=== PATIENT | male | born 1990 | race American Indian/Alaskan Native ===

== ENCOUNTER 2018-03-24 15:38 | Emergency (ER) | payer MEDICAID ==
[~2018-03-24] VITALS: Ht 175.3 cm; Wt 91.9 kg
[2018-03-24 15:42] VITALS: BP 155/92
== END 2018-03-24 16:29 | disposition home or self-care (01) ==
LOC: ER 15:38
DX: K52.9 Noninfective gastroenteritis and colitis, unspecified (principal)
CPT/HCPCS: 99281

== ENCOUNTER 2019-10-26 15:58 | Emergency (ER) | payer MEDICAID, OTHER ==
[~2019-10-26] VITALS: Ht 175.3 cm; Wt 64.6 kg
[2019-10-26 16:00] VITALS: BP 125/74
== END 2019-10-26 19:02 | disposition left against medical advice (07) ==
LOC: ER 15:58 → MERGE 15:58 → ER 19:02
DX: L02.415 Cutaneous abscess of right lower limb (principal); Z53.21 Procedure and treatment not carried out due to patient leaving prior to being seen by health care provider

== ENCOUNTER 2021-08-18 05:57 | Emergency (ER) | payer MEDICAID ==
[~2021-08-18] VITALS: Ht 175.3 cm; Wt 70.0 kg
[2021-08-18 06:14] VITALS: BP 132/85
[2021-08-18] MEDS ORDERED: acetaminophen 325mg tablet PO ONE (06:30)
[2021-08-18] MEDS ORDERED: proparacaine 0.5% ophthalmic drops 15ml EACHEYE ONE (06:30)
[2021-08-18] MEDS ORDERED: ibuprofen tablet 400 MG TABLET PO ONE (06:30)
[2021-08-18] MEDS ORDERED: ibuprofen 200mg tablet PO ONE (06:35)
[2021-08-18] MEDS ORDERED: erythromycin ophthalmic ointment 1gm tube RIGHTEYE ONE (07:15)
[2021-08-18] MEDS ORDERED: ERYT1OIN6 EACHEYE (07:17)
== END 2021-08-18 07:33 | disposition home or self-care (01) ==
LOC: ER 05:57
DX: T26.11XA Burn of cornea and conjunctival sac, right eye, initial encounter (principal); H57.11 Ocular pain, right eye; Z72.89 Other problems related to lifestyle; X08.8XXA Exposure to other specified smoke, fire and flames, initial encounter; Y93.89 Activity, other specified; Y92.89 Other specified places as the place of occurrence of the external cause; Y99.8 Other external cause status
CPT/HCPCS: 99284

== ENCOUNTER 2021-10-27 02:53 | Emergency (ER) | payer SELFPAY ==
[~2021-10-27] VITALS: Ht 175.3 cm; Wt 66.3 kg
[2021-10-27 03:02] VITALS: BP 131/99
== END 2021-10-27 03:39 | disposition left against medical advice (07) ==
LOC: ER 02:54
DX: R07.89 Other chest pain (principal); Z53.21 Procedure and treatment not carried out due to patient leaving prior to being seen by health care provider
CPT/HCPCS: 71046; 93005

== ENCOUNTER 2023-11-17 17:19 | Emergency (ER) | payer OTHER ==
[~2023-11-17] VITALS: Ht 167.6 cm; Wt 64.0 kg
[2023-11-17 17:22] VITALS: BP 137/73; PULSE 93; RESP 18; TEMP 98.8; O2SAT 97
== END 2023-11-17 17:57 | disposition home or self-care (01) ==
LOC: ER 17:19
DX: S60.221A Contusion of right hand, initial encounter (principal); Z72.89 Other problems related to lifestyle; W22.8XXA Striking against or struck by other objects, initial encounter; Y93.89 Activity, other specified; Y92.89 Other specified places as the place of occurrence of the external cause; Y99.8 Other external cause status
CPT/HCPCS: 73130; 99283

== ENCOUNTER 2025-01-16 18:17 | Emergency (ER) | payer MEDICAID ==
--- NOTE | 2025-01-16 19:07 | Physician Documentation ---
History of Present Illness ~ Chief Complaint: Mental Health Eval Stated Complaint: MH EVAL Time Seen by MD: 18:54 Primary Medical Doctor: none HPI This is a 35-year-old male who presents reporting that he does not feel safe in his home, patient is reportedly on the phone with the police department while in triage, patient reports he has no physical concerns though he is afraid to go back to his house stating "I'm afraid the people I went to [facility] with are going to go after me. Patient asked if he had thoughts of suicidal or homicidal intentions, patient reports no suicidal ideation or homicidal ideation, additionally patient reports no thoughts of harming self or others and reports no visual or auditory hallucinations. Patient reports he knows how to get back to his house however he is afraid to go there. Medication Reconciliation Allergies: Coded Allergies: No Known Allergies (Unverified , 11/17/23) Past Medical History Past Medical History: No Pertinent History Past Surgical History: no surgical history Alcohol Use: Occasionally Drug Use: none Lives In: Home Occupation: employed Review of Systems ROS As stated above in the HPI, otherwise all systems are reviewed and negative. Physical Exam Vital Signs: Temperature: 98.6, Source: Temporal, Heart Rate: 103, Respiratory Rate: 16, BP: 158/87, Pulse Oximetry: 97 Oxygen Flow Rate: 0 Physical Exam VITALS: Reviewed and as above. GENERAL: Alert, nontoxic appearing, no apparent distress. RESPIRATORY: No increased work of breathing, no respiratory distress, speaking in full clear sentences NEURO: GCS 15, alert and oriented x4 Walking with a steady unassisted gait moving all limbs equally PSYCH: Anxious appearing, voicing no HI or SI Progress Results/Orders Results/Orders Vital Signs 01/16/25 01/16/25 18:21 19:25 Temp 98.6 98.6 Pulse 103 99 Resp 16 20 B/P (MAP) 158/87 156/86 Pulse Ox 97 99 O2 Flow Rate 0 Medical Decision Making Findings This 35-year-old male presented to the emergency department due to feeling unsafe at in his home, patient had no physical concerns and reports he is already in contact with [employer], nursing staff confirmed patient is in contact with [employer] though the will not be taking action as patient is reporting no SI or HI, on interview with patient he confirms no HI or SI. As patient reports no physical concerns and appears otherwise well he is medically cleared from the emergency department, as patient reports no HI or SI and is able to verbalize ability to care for himself including returning to his home he does not meet criteria for a 1799 mental health hold. Patient to be advised that he may present to the [place] if he is unable to return to his home otherwise if he is fearful of harm from others he may discuss this with law enforcement. Patient advised that he may return to the emergency department should physical symptoms, suicidal ideation, homicidal ideation, or other concerns develop. Differential Dx:Considerations: Include: Alcohol abuse, Anxiety, Bipolar disor vonnie, Conversion disorder, Depression, Encephaloathy, Homicidal, Panic disorder, Personality disorder, Schizophrenia, Substance abuse, Suicidal, Other (Alcohol intoxication, drug intoxication) Departure Disposition: 01 HOME / SELF CARE / HOMELESS Impression: Primary Impression: Mental disorder Condition: Improved Discharge Instructions: Medical Screening Exam Additional Instructions: As you have no physical concerns I have no reason to keep you in the emergency department. If you feel unsafe it your home you may go to the [place] otherwise contact law enforcement for any concerns that someone is trying to harm you. Please follow up with your primary care provider in the next few days. Please return to the emergency department for any new or worsening concerning symptoms including but not limited to thoughts of harming yourself or others. Referrals: NO PRIMARY CARE PROVIDER (PCP) Education Educated: Patient Educated regarding: diagnosis, treatment, prognosis, need for follow up Signature Scribe Signature: No scribe Attestation: The note accurately reflects work and decisions made by me.DEVENDRA Ernst 01/18/25 14:53 POSRCHE KEEN Jan 16, 2025 19:07
[2025-01-16 19:25] VITALS: BP 156/86; PULSE 99; RESP 20; TEMP 98.6; O2SAT 99
== END 2025-01-16 19:26 | disposition home or self-care (01) ==
LOC: ER 18:18
DX: F99 Mental disorder, not otherwise specified (principal)
CPT/HCPCS: 99281; 99282; 99283